=== PATIENT | female | born 1955 | race Caucasian/White ===

== ENCOUNTER 2018-10-10 16:29 | Emergency (ER) | payer OTHER, SELFPAY ==
[2018-10-10 16:35] VITALS: BP 156/96; PULSE 98; RESP 20; TEMP 36.5; O2SAT 99
--- NOTE | 2018-10-10 16:37 | DI.RAD.S_ITS ---
PROCEDURE: XR ANKLE RT MIN 3V INDICATIONS: rt lateral ankle pain/swelling, twisting injury TECHNIQUE: 3 views of the ankle were acquired. COMPARISON: None. FINDINGS: Bones: There is an apparent fragment of bone seen between the distal fibular tip and the talus. No additional focal bony abnormalities are seen. Age-appropriate bony degenerative changes are seen. No suspicious lytic or blastic lesions are seen. Soft tissues: Focal swelling is seen laterally. IMPRESSION: There is an apparent fragment of bone seen between the distal fibula and the talus. This is felt most likely to be related to an avulsion fragment from the fibula, although a donor site is unclear. Differential diagnosis includes calcification, yet this is considered to be less likely. Please consider a dedicated CT scan for further evaluation. Associated lateral soft tissue swelling is seen. Dictated by: Wilmer Patino M.D. on 10/10/2018 at 15:52 Approved by: Wilmer Patino M.D. on 10/10/2018 at 15:54
--- NOTE | 2018-10-10 16:47 | ED_ITS ---
HPI - Extremity Injury (Lower) <DORIS Duron - Last Filed: 10/10/18 18:56> General Chief Complaint: Extremity Injury, Lower Stated Complaint: thinks she broke her right ankle Time Seen by Provider: 10/10/18 16:34 Source: patient and family Mode of arrival: ambulatory Limitations: no limitations History of Present Illness HPI Narrative: The patient is a 62-year-old female current smoker presents with her for chief complaint of right ankle pain. She states that her right foot was ?asleep? when she got off the couch and she rolled her ankle in. She complains of swelling on the lateral aspect. She was able to walk after the injury. She states she has impressed with her range of motion given the swelling. She denies any numbness or tingling. She states she has no pain when she is not moving. She has not taken anything for pain or applied ice Related Data Previous Rx's Medication Instructions Recorded oxycodone-acetaminophen [Percocet] 1 tab PO Q4-6H PRN #7 tab 10/10/18 Allergies Allergy/AdvReac Type Severity Reaction Status Date / Time No Known Drug Allergies Allergy Verified 10/10/18 16:37 Review of Systems <DORIS Duron - Last Filed: 10/10/18 18:56> Review of Systems GENERAL: Denies chills, fatigue, malaise, fever, sweats. HEENT: Denies sinus pain, ear pain, sore throat, difficulty swallowing, dizziness. RESPIRATORY: Denies dyspnea, cough, wheezing, hemoptysis, sputum. CARDIOVASCULAR: Denies chest pain, palpitations, orthopnea, edema, GASTROINTESTINAL: Denies nausea, vomiting, abdominal pain, diarrhea, constipation, melena. : Denies dysuria, frequency, incontinence, hematuria, urinary retention. MUSCULOSKELETAL: See HPI SKIN: See HPI NEUROLOGIC: Denies weakness, headache, numbness, change in speech, confusion, seizures, incoordination. PSYCHIATRIC: No concerning psychosocial issues. 12 point review of systems is negative except for those stated above PFSH <DORIS Duron - Last Filed: 10/10/18 18:56> Social History Smoking Status: Current every day smoker Social History Smoking Status: Current every day smoker Exam <DORIS Duron - Last Filed: 10/10/18 18:56> Narrative Exam Narrative: GENERAL: This is a well-nourished, well-developed patient, no acute distress HEAD: Atraumatic. Normocephalic. No temporal or scalp tenderness. EYES: Pupils equal round and reactive. Extraocular motions intact. No scleral icterus. No injection or drainage. ENT: Nose without bleeding, purulent drainage or septal hematoma. Throat without erythema, tonsillar hypertrophy or exudate. Uvula midline. Airway patent. NECK: Trachea midline. No JVD or lymphadenopathy. Supple, nontender, no meningeal signs. CARDIOVASCULAR: Regular rate and rhythm RESPIRATORY: No cough. No increased respiratory effort. No acute distress. EXTREMITIES: Positive pedal pulses right ankle. Swelling noted lateral malleolus right ankle. Patient is able to flex extend pronate supinate right ankle capillary refill less than 2 seconds all toes right foot. BACK: Nontender without deformity or crepitance. No flank tenderness. NEURO: AOx3. SKIN: Ecchymosis noted distal to lateral malleolus. No abrasion laceration etc. Initial Vital Signs Initial Vital Signs: Vital Signs Temperature 97.7 F 10/10/18 16:35 Pulse Rate 98 H 10/10/18 16:35 Respiratory Rate 20 10/10/18 16:35 Blood Pressure 156/96 H 10/10/18 16:35 Pulse Oximetry 99 10/10/18 16:35 <Valentin Hoffmann DO - Last Filed: 10/10/18 20:43> Initial Vital Signs Initial Vital Signs: Vital Signs Temperature 97.7 F 10/10/18 16:35 Pulse Rate 98 H 10/10/18 16:35 Respiratory Rate 20 10/10/18 16:35 Blood Pressure 156/96 H 10/10/18 16:35 Pulse Oximetry 99 10/10/18 16:35 Procedures <DORIS Duron - Last Filed: 10/10/18 18:56> Orthopedic Splinting/Casting Injury #1: Side: right Lower Extremity Injury Location: ankle Lower Extremity Immobilizer: boot orthosis Other Orthopedic Equipment: crutches Post splinting neuro exam: intact Post splinting vascular exam: intact Placed by: Nursing Course <DORIS Duron - Last Filed: 10/10/18 18:56> Orders Ordered: ED Orders 10/10/18 16:37 XR ankle RT min 3V Stat 10/10/18 17:19 CT LE RT wo con Stat Discontinued Medications Oxycodone/Acetaminophen (Endocet 5/325 Prepack) 1 bottle MISC SEEINSTR ONE Stop: 10/10/18 18:45 Last Admin: 10/10/18 18:49 Dose: 1 bottle Vital Signs - 8 hr 10/10/18 16:35 10/10/18 17:15 Temperature 97.7 F Pulse Rate 98 H 92 H Respiratory Rate 20 18 Blood Pressure 156/96 H Blood Pressure [Left Arm] 138/70 Pulse Oximetry 99 92 <Valentin Hoffmann DO - Last Filed: 10/10/18 20:43> Orders Ordered: ED Orders 10/10/18 16:37 XR ankle RT min 3V Stat 10/10/18 17:19 CT LE RT wo con Stat Discontinued Medications Oxycodone/Acetaminophen (Endocet 5/325 Prepack) 1 bottle MISC SEEINSTR ONE Stop: 10/10/18 18:45 Last Admin: 10/10/18 18:49 Dose: 1 bottle Vital Signs - 8 hr 10/10/18 16:35 10/10/18 17:15 Temperature 97.7 F Pulse Rate 98 H 92 H Respiratory Rate 20 18 Blood Pressure 156/96 H Blood Pressure [Left Arm] 138/70 Pulse Oximetry 99 92 MDM - Extremity Injury (Lower) <DORIS Duron - Last Filed: 10/10/18 18:56> Imaging Data lower ext ct: Radiologist's impression: Malena Vogt 62 [address] [place] [address] CT Scan Report Signed Patient: Malena VogtMR#: [id number] : 8Acct:[id number] Age/Sex: 62 / FDate of Service: 10/10/18 Loc: ED Accession Number: [id number] Procedure: CT LE RT wo con Ordering Provider: Amrita Bergeron PROCEDURE: CT LE RT WO CON INDICATIONS: ? ankle fx on xray TECHNIQUE: Noncontrast 1-1.5 mm axial sections acquired from above the tibiotalar joint to the bottom of the calcaneus, with coronal and sagittal reformats. COMPARISON: [facility], CR, XR ANKLE RT MIN 3V, 10/10/2018, 16:46. FINDINGS: Image quality: Excellent. Bones: There are again seen tiny fragments of bone between the distal fibula. There is a mild impaction fracture seen on the lateral aspect of the talus, and the donor site is regarded to be from the talus itself. The syndesmosis does not appear abnormally widened. No ibis talar dome abnormality is seen. No suspicious lytic or blastic lesions are seen. Soft tissues: There is focal soft tissue swelling seen along the lateral ankle. No soft tissue masses or loculated fluid collections are seen. IMPRESSION: Small fragments of bone are seen between the lateral talus and the fibular tip. This is believed to be related from an avulsion fracture from the talus itself. An orthopedic surgery consultation is recommended. Dictated by: Wilmer Patino M.D. on 10/10/2018 at 16:46 Approved by: Wilmer Patino M.D. on 10/10/2018 at 16:58 ankle x-ray: Radiologist's impression: Malena Vogt 62 F [address] [place] [address] XRay Report Signed Patient: Malena VogtMR#: [id number] : 8Acct:[id number] Age/Sex: 62 / FDate of Service: 10/10/18 Loc: Accession Number: [id number] Procedure: XR ankle RT min 3V Ordering Provider: Amrita Bergeron- PROCEDURE: XR ANKLE RT MIN 3V INDICATIONS: rt lateral ankle pain/swelling, twisting injury TECHNIQUE: 3 views of the ankle were acquired. COMPARISON: None. FINDINGS: Bones: There is an apparent fragment of bone seen between the distal fibular tip and the talus. No additional focal bony abnormalities are seen. Age-appropriate bony degenerative changes are seen. No suspicious lytic or blastic lesions are seen. Soft tissues: Focal swelling is seen laterally. IMPRESSION: There is an apparent fragment of bone seen between the distal fibula and the talus. This is felt most likely to be related to an avulsion fragment from the fibula, although a donor site is unclear. Differential diagnosis includes calcification, yet this is considered to be less likely. Please consider a dedicated CT scan for further evaluation. Associated lateral soft tissue swelling is seen. Dictated by: Wilmer Patino M.D. on 10/10/2018 at 15:52 Approved by: Wilmer Patino M.D. on 10/10/2018 at 15:54 [facility] Narrative Medical decision making narrative: The patient is a 62-year-old female presents with an isolated ankle injury. Ankle x-ray was indeterminate with concern for bone chip between the fibula and talus and a CT scan was requested by Radiology. Thus a left lower leg extremity CT was obtained, and small bone fragments were seen between the lateral talus and fibular tip. There is concern for an avulsion fracture of the talus. She is neurovascularly intact. Given this finding, she was placed in a walking boot and given crutches as well as follow- up instructions with [facility]. She states she is very comfortable following up with them as 1 of the surgeons as 1 of her neighbors. She initially declined any pain medications, but then changed her mind, so I gave her Percocet as opposed to [place] due to an intolerance of [place]. I discussed at length [id number] medications as needed and able as well as rest ice compression elevation. Patient has no questions or concerns. Return precautions including decreased circulation discussed and patient states understanding. Discharge Plan Departure Patient Disposition: Home Clinical Impression: Avulsion fracture of talus Qualifiers: Encounter type: initial encounter Fracture type: closed Fracture alignment: nondisplaced Laterality: right Qualified Code(s): S92.154A - Nondisplaced avulsion fracture (chip fracture) of right talus, initial encounter for closed fracture Discharge Date/Time: 10/10/18 19:06 Interventions: ED Discharge Assessment Last Done: 10/10/18 19:05 Instructions: How to Use Crutches, DI for Talus Fracture Activity Restrictions/Additional Instructions: Your imaging today shows an avulsion fracture off the talus. We have placed him in a walking boot and given crutches. Please remain is nonweightbearing as possible on that foot. I have given you a prescription of Percocet. Be aware this could be sedating and constipating. Do not take and drive or drink alcohol. Please follow-up with [facility]. Please come back to emergency department for any acute concerns such as decreased circulation to your toes. Prescriptions: New oxycodone-acetaminophen [Percocet] 5-325 mg tablet 1 tab PO Q4-6H PRN (Reason: pain) Qty: 7 RF: 0 Referrals: [facility] [Outside] [facility] [Outside] <Valentin Hoffmann DO - Last Filed: 10/10/18 20:43> Angela ED Attending Marvin Attestation: I was available for consultation during this patient's emergency department encounter
[2018-10-10 17:15] VITALS: BP 138/70; PULSE 92; RESP 18; O2SAT 92
--- NOTE | 2018-10-10 17:19 | DI.CT.S_ITS ---
PROCEDURE: CT LE RT WO CON INDICATIONS: ? ankle fx on xray TECHNIQUE: Noncontrast 1-1.5 mm axial sections acquired from above the tibiotalar joint to the bottom of the calcaneus, with coronal and sagittal reformats. COMPARISON: [facility], CR, XR ANKLE RT MIN 3V, 10/10/2018, 16:46. FINDINGS: Image quality: Excellent. Bones: There are again seen tiny fragments of bone between the distal fibula. There is a mild impaction fracture seen on the lateral aspect of the talus, and the donor site is regarded to be from the talus itself. The syndesmosis does not appear abnormally widened. No ibis talar dome abnormality is seen. No suspicious lytic or blastic lesions are seen. Soft tissues: There is focal soft tissue swelling seen along the lateral ankle. No soft tissue masses or loculated fluid collections are seen. IMPRESSION: Small fragments of bone are seen between the lateral talus and the fibular tip. This is believed to be related from an avulsion fracture from the talus itself. An orthopedic surgery consultation is recommended. Dictated by: Wilmer Patino M.D. on 10/10/2018 at 16:46 Approved by: Wilmer Patino M.D. on 10/10/2018 at 16:58
--- NOTE | 2018-10-10 17:23 | PC.NURSE ---
pt reports, pt was asleep getting up then right ankle rolled. occured approx 1600. denies other injuries. arrived with right lateral ankle edema and with bruising. +distal cms intact.
[2018-10-10] MEDS: OXYCODONE/APAP 5/325 PREPACK 1 BOTTLE MISC (18:49)
== END 2018-10-10 19:06 | disposition home or self-care (01) ==
PROVIDERS: Emergency Provider Nurse Practitioner Family
DX: S92.154A Nondisplaced avulsion fracture (chip fracture) of right talus, initial encounter for closed fracture (principal)
CPT/HCPCS: 29580; 73610; 73700; 99282; 99284

== ENCOUNTER → 2019-05-03 09:40 | Outpatient (CLI) | payer OTHER, SELFPAY ==
--- NOTE | 2019-05-03 09:41 | DI.RAD.S_ITS ---
PROCEDURE: XR CHEST 2V INDICATIONS: cough, sob, former smoker, r/o copd/pneumonia TECHNIQUE: 2 views of the chest were acquired. COMPARISON: None. FINDINGS: Surgical changes and devices: None. Lungs and pleura: Patchy opacities noted in the lung bases bilaterally left greater than right. No pleural effusions or pneumothorax. Lungs are mildly hyperinflated suggesting COPD. Mediastinum: Mediastinal contours are normal. Heart size is normal. Bones and chest wall: No suspicious bony abnormalities. Soft tissues appear unremarkable. IMPRESSION: Patchy bibasilar lung opacities which could represent atelectasis or pneumonia. Dictated by: Landy Roque MD, PhD on 05/03/2019 at 11:23 Approved by: Landy Roque MD, PhD on 05/03/2019 at 11:24
== END ==
PROVIDERS: Visit Provider Physician Assistant
DX: J06.9 Acute upper respiratory infection, unspecified (principal); R05 Cough; R06.00 Dyspnea, unspecified; Z87.891 Personal history of nicotine dependence
CPT/HCPCS: 71046